=== PATIENT | male | born 1990 | race Caucasian/White ===

== ENCOUNTER 2022-05-15 19:34 | Emergency (ER) | payer MEDICAID ==
[~2022-05-15] VITALS: Ht 152.4 cm; Wt 59.0 kg
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
--- NOTE | 2022-05-15 20:18 | NUR ---
GEAR SH[employer]ER SET UP OPERATOR AT BEDSIDE FOR WOUND CARE
[2022-05-15] MEDS ORDERED: NAPR-1192 PO (21:56)
--- NOTE | 2022-05-15 22:04 | NUR ---
Patient discharged to home in stable condition. Written and verbal after care instructions given. Patient verbalizes understanding of instruction. Pt ambulatory with a steady gait
[2022-05-15 22:05] VITALS: BP 130/81
== END 2022-05-15 22:05 | disposition home or self-care (01) ==
LOC: ER 19:39
DX: S02.2XXA Fracture of nasal bones, initial encounter for closed fracture (principal); Z60.2 Problems related to living alone; Z79.1 Long term (current) use of non-steroidal anti-inflammatories (NSAID); W01.10XA Fall on same level from slipping, tripping and stumbling with subsequent striking against unspecified object, initial encounter; Y93.89 Activity, other specified; Y92.89 Other specified places as the place of occurrence of the external cause; Y99.8 Other external cause status
CPT/HCPCS: 70486-TC